=== PATIENT | female | born 1945 | race Caucasian/White ===

== ENCOUNTER 2021-10-01 01:30 | Inpatient (IN) ==
[2021-10-01] MEDS ORDERED: methylPREDNISolone SOD SUC 125 MG/2 ML VIAL IV STA (08:02)
[2021-10-01] MEDS ORDERED: ALBUTEROL/IPRATROPIUM 3 ML NEB RESP TX STA (08:02)
[2021-10-01 08:59] LABS: Basophils % 0.3 % (0.0-0.8); Eosinophils # 0.1 10*3/uL (0.0-0.87); Hematocrit 37.5 VOL% (35.7-47.0); Hemoglobin 12.5 GM/DL (12.0-16.0); Immature Granulocytes % 0.6 %; Immature Granulocytes Absolute 0.04 #; Lymphocytes # 1.7 10*3/uL (1.4-4.0); Lymphocytes % 24.6 % (21.3-54.2); Mean Corpuscular HGB Conc 33.3 GM/DL (32-36); Mean Platelet Volume 10.3 FL (9.6-12.0); Monocytes % 9.3 % (1.7-12.7); Neutrophils % 64.2 % (38.7-73.9); Platelet Count 267 T/CUMM (130-400); Red Blood Count 4.36 MC/CUMM (3.8-5.5); Red Cell Distribution Width 12.7 % (9.3-17.3); White Blood Count 6.7 T/CUMM (4-12)
[2021-10-01 09:21] LABS: Alanine Aminotransferase 62 U/L (13-56); Albumin 3.4 G/DL (3.4-5.0); Alkaline Phosphatase 259 U/L (45-117); Aspartate Amino Transferase 61 U/L (0-37); Bilirubin,Total < 0.39 MG/DL (0.20-1.00); Blood Urea Nitrogen 14 MG/DL (7-18); Calcium 9.1 MG/DL (8.5-10.1); Carbon Dioxide 28 MMOL/L (21-32); Estimated Glom Filtration Rate 73 ML/MIN; Glucose 201 MG/DL (74-106); Osmolality,Calculated 274.2 MOS/KG (273-304); Potassium 4.1 MMOL/L (3.5-5.1); Sodium 134 MMOL/L (136-145); Total Protein 7.3 G/DL (6.4-8.2)
[2021-10-01 09:22] LABS: Band Neutrophils 9 % (0-10); Eosinophils 1 % (0-10); Lymphocytes 21 % (20-55); Platelet Estimate Normal; Segmented Neutrophils 59 % (50-85); Total Cells Counted 100
[2021-10-01 09:23] LABS: Anisocytosis Slight
[2021-10-01] MEDS ORDERED: ALBUTEROL 2.5 MG/3 ML NEB RESP TX STA (10:05)
[2021-10-01] MEDS ORDERED: GLUCAGON 1 MG VIAL IM PRN (14:19)
[2021-10-01] MEDS ORDERED: DEXTROSE 50% 25 GM/50 ML SYRINGE IV PRN (14:19)
[2021-10-01] MEDS ORDERED: ALBUTEROL 2.5 MG/3 ML NEB RESP TX PRN (14:19)
[2021-10-01] MEDS ORDERED: ONDANSETRON 4 MG/2 ML VIAL IV PRN (14:19)
[2021-10-01] MEDS ORDERED: LOSARTAN 25 MG TABLET PO SCH (14:30)
[2021-10-01] MEDS: ENOXAPARIN 40 MG/0.4 ML SYRINGE SUBCUT SCH (15:39)
[2021-10-01] MEDS: METOPROLOL TARTRATE 50 MG TABLET PO SCH ×2 (15:39→21:25)
[2021-10-01] MEDS: SODIUM CHLORIDE 0.9% 1,000 ML IV SCH ×2 (15:39→21:30)
[2021-10-01] MEDS: ASPIRIN EC 81 MG TABLET PO SCH (15:39)
[2021-10-01] MEDS: cefTRIAXone 1,000 MG in SODIUM CHLORIDE 0.9% 100 ML IV SCH (15:40)
[2021-10-01] MEDS: INSULIN REGULAR 100 UNIT/ML SUBCUT SCH ×2 (17:32→21:24)
[2021-10-01] MEDS: methylPREDNISolone SOD SUC 40 MG/1 ML VIAL IV SCH (17:38)
[2021-10-01] MEDS: INSULIN LISPRO 100 UNIT/ML SUBCUT SCH (17:39)
[2021-10-01 18:25] LABS: Thyroid Stimulating Hormone 4.83 uIU/ml (0.358-3.74)
[2021-10-01] MEDS: BUDESONIDE 0.5 MG/2 ML NEB RESP TX SCH (20:29)
[2021-10-01] MEDS: ALBUTEROL/IPRATROPIUM 3 ML NEB RESP TX SCH (20:29)
[2021-10-01] MEDS: ATORVASTATIN 20 MG TABLET PO SCH (21:24)
[2021-10-02] MEDS: methylPREDNISolone SOD SUC 40 MG/1 ML VIAL IV SCH ×3 (00:28→17:02)
[2021-10-02] MEDS: ALBUTEROL/IPRATROPIUM 3 ML NEB RESP TX SCH ×4 (01:21→20:10)
[2021-10-02] MEDS: SODIUM CHLORIDE 0.9% 1,000 ML IV SCH ×2 (06:35→14:53)
[2021-10-02] MEDS: BUDESONIDE 0.5 MG/2 ML NEB RESP TX SCH ×2 (07:25→20:10)
[2021-10-02] MEDS ORDERED: MAGNESIUM SULF RIDER 4 GM/100 ML PREMIX IV PRN (07:58)
[2021-10-02] MEDS ORDERED: POTASSIUM CHLORIDE 20 MEQ TABLET PO PRN (07:58)
[2021-10-02] MEDS ORDERED: MAGNESIUM SULF RIDER 2 GM/50 ML PREMIX IV PRN (07:58)
[2021-10-02] MEDS: PANTOPRAZOLE 40 MG TABLET PO SCH (09:03)
[2021-10-02] MEDS: INSULIN REGULAR 100 UNIT/ML SUBCUT SCH ×4 (09:03→22:08)
[2021-10-02] MEDS: INSULIN LISPRO 100 UNIT/ML SUBCUT SCH ×3 (09:03→17:03)
[2021-10-02] MEDS: METOPROLOL TARTRATE 50 MG TABLET PO SCH ×2 (09:03→22:08)
[2021-10-02] MEDS: ASPIRIN EC 81 MG TABLET PO SCH (09:03)
[2021-10-02] MEDS: INSULIN GLARGINE 100 UNIT/ML SUBCUT SCH (09:03)
[2021-10-02 09:44] LABS: Basophils % 0.1 % (0.0-0.8); Hematocrit 34.3 VOL% (35.7-47.0); Hemoglobin 11.3 GM/DL (12.0-16.0); Immature Granulocytes % 0.9 %; Immature Granulocytes Absolute 0.16 #; Lymphocytes # 1.6 10*3/uL (1.4-4.0); Lymphocytes % 8.3 % (21.3-54.2); Mean Corpuscular HGB Conc 32.9 GM/DL (32-36); Mean Corpuscular Volume 87.9 FL (87-102); Mean Platelet Volume 10.5 FL (9.6-12.0); Monocytes % 3.5 % (1.7-12.7); Neutrophils % 87.2 % (38.7-73.9); Platelet Count 291 T/CUMM (130-400); Red Cell Distribution Width 13.1 % (9.3-17.3); White Blood Count 18.8 T/CUMM (4-12)
[2021-10-02 10:14] LABS: Albumin 2.6 G/DL (3.4-5.0); Bilirubin,Total 0.7 MG/DL (0.20-1.00); Calcium 8.1 MG/DL (8.5-10.1); Potassium 4.1 MMOL/L (3.5-5.1); Total Protein 6.7 G/DL (6.4-8.2)
[2021-10-02] MEDS: cefTRIAXone 1,000 MG in SODIUM CHLORIDE 0.9% 100 ML IV SCH (14:49)
[2021-10-02] MEDS: AZITHROMYCIN 250 MG TABLET PO SCH (14:50)
[2021-10-02] MEDS: ENOXAPARIN 40 MG/0.4 ML SYRINGE SUBCUT SCH (14:50)
[2021-10-02] MEDS: ATORVASTATIN 20 MG TABLET PO SCH (22:08)
[2021-10-03] MEDS: ALBUTEROL/IPRATROPIUM 3 ML NEB RESP TX SCH ×4 (00:25→19:45)
[2021-10-03] MEDS: methylPREDNISolone SOD SUC 40 MG/1 ML VIAL IV SCH ×2 (01:37→08:39)
[2021-10-03 02:16] LABS: Bilirubin,Urine Negative (Negative); Blood, Urine Negative (Negative); Glucose,Urine (UA) >=500 mg/dL (Negative); Hyaline Casts,Urine 4 /LPF (0-3); Ketones,Urine Negative (Negative); Mucus,Urine Occasional /LPF (Occasional); Nitrite,Urine Negative (Negative); Protein,Urine Negative; RBC,Urine 2 /HPF (0-4); Squamous Epithelial Cell,Urine Occasional /HPF (0-10); Urine Appearance CLEAR (Clear); Urine Color Yellow (Yellow); Urine Specific Gravity 1.018 (1.001-1.035); Urine Urobilinogen < 2.0 EU/DL (<2.0)
[2021-10-03] MEDS: SODIUM CHLORIDE 0.9% 1,000 ML IV SCH ×3 (04:17→19:20)
[2021-10-03 05:24] LABS: Basophils % 0.1 % (0.0-0.8); Hematocrit 33.4 VOL% (35.7-47.0); Immature Granulocytes % 1.5 %; Immature Granulocytes Absolute 0.34 #; Lymphocytes # 1.6 10*3/uL (1.4-4.0); Lymphocytes % 6.9 % (21.3-54.2); Mean Corpuscular HGB Conc 32.9 GM/DL (32-36); Mean Corpuscular Volume 88.1 FL (87-102); Mean Platelet Volume 10.6 FL (9.6-12.0); Monocytes % 3.9 % (1.7-12.7); Neutrophils % 87.6 % (38.7-73.9); Platelet Count 327 T/CUMM (130-400); Red Blood Count 3.79 MC/CUMM (3.8-5.5); Red Cell Distribution Width 13.2 % (9.3-17.3); White Blood Count 22.8 T/CUMM (4-12)
[2021-10-03 05:48] LABS: Alanine Aminotransferase 40 U/L (13-56); Albumin 2.5 G/DL (3.4-5.0); Alkaline Phosphatase 161 U/L (45-117); Aspartate Amino Transferase 40 U/L (0-37); Bilirubin,Total < 0.39 MG/DL (0.20-1.00); Blood Urea Nitrogen 22 MG/DL (7-18); Calcium 8.3 MG/DL (8.5-10.1); Carbon Dioxide 19 MMOL/L (21-32); Estimated Glom Filtration Rate 48 ML/MIN; Glucose 194 MG/DL (74-106); Osmolality,Calculated 286.4 MOS/KG (273-304); Potassium 3.5 MMOL/L (3.5-5.1); Sodium 140 MMOL/L (136-145); Total Protein 6.4 G/DL (6.4-8.2)
[2021-10-03] MEDS: LEVOTHYROXINE 75 MCG TABLET PO SCH (06:07)
[2021-10-03] MEDS: BUDESONIDE 0.5 MG/2 ML NEB RESP TX SCH ×2 (07:16→19:45)
[2021-10-03 07:48] LABS: Lymphocytes 4 % (20-55); Metamyelocytes 2 %; Segmented Neutrophils 91 % (50-85); Total Cells Counted 100
[2021-10-03 07:49] LABS: Ovalocytes Few; Platelet Estimate Normal
[2021-10-03] MEDS: INSULIN LISPRO 100 UNIT/ML SUBCUT SCH ×3 (08:39→17:26)
[2021-10-03] MEDS: INSULIN GLARGINE 100 UNIT/ML SUBCUT SCH (08:39)
[2021-10-03] MEDS: INSULIN REGULAR 100 UNIT/ML SUBCUT SCH ×4 (08:39→20:59)
[2021-10-03] MEDS: ASPIRIN EC 81 MG TABLET PO SCH (08:40)
[2021-10-03] MEDS: PANTOPRAZOLE 40 MG TABLET PO SCH (08:40)
[2021-10-03] MEDS: AZITHROMYCIN 250 MG TABLET PO SCH (08:40)
[2021-10-03] MEDS: METOPROLOL TARTRATE 50 MG TABLET PO SCH ×2 (08:40→20:58)
[2021-10-03] MEDS: ENOXAPARIN 40 MG/0.4 ML SYRINGE SUBCUT SCH (16:49)
[2021-10-03] MEDS: cefTRIAXone 1,000 MG in SODIUM CHLORIDE 0.9% 100 ML IV SCH (16:49)
[2021-10-03] MEDS: predniSONE 10 MG TABLET PO SCH (20:58)
[2021-10-03] MEDS: ATORVASTATIN 20 MG TABLET PO SCH (20:58)
[2021-10-04] MEDS: ALBUTEROL/IPRATROPIUM 3 ML NEB RESP TX SCH ×2 (00:58→07:25)
[2021-10-04] MEDS: SODIUM CHLORIDE 0.9% 1,000 ML IV SCH ×2 (03:27→09:25)
[2021-10-04 06:07] LABS: Basophils % 0.2 % (0.0-0.8); Hematocrit 31.8 VOL% (35.7-47.0); Hemoglobin 10.5 GM/DL (12.0-16.0); Immature Granulocytes % 3.3 %; Lymphocytes # 1.3 10*3/uL (1.4-4.0); Lymphocytes % 6.8 % (21.3-54.2); Mean Corpuscular Volume 86.6 FL (87-102); Mean Platelet Volume 10.5 FL (9.6-12.0); Monocytes % 5.1 % (1.7-12.7); Neutrophils % 84.6 % (38.7-73.9); Platelet Count 298 T/CUMM (130-400); Red Blood Count 3.67 MC/CUMM (3.8-5.5); Red Cell Distribution Width 13.4 % (9.3-17.3); White Blood Count 18.3 T/CUMM (4-12)
[2021-10-04] MEDS: LEVOTHYROXINE 75 MCG TABLET PO SCH (06:12)
[2021-10-04 06:22] LABS: Alanine Aminotransferase 42 U/L (13-56); Albumin 2.2 G/DL (3.4-5.0); Alkaline Phosphatase 142 U/L (45-117); Aspartate Amino Transferase 39 U/L (0-37); Bilirubin,Total < 0.39 MG/DL (0.20-1.00); Blood Urea Nitrogen 16 MG/DL (7-18); Carbon Dioxide 21 MMOL/L (21-32); Estimated Glom Filtration Rate 73 ML/MIN; Glucose 100 MG/DL (74-106); Osmolality,Calculated 286.8 MOS/KG (273-304); Potassium 3.6 MMOL/L (3.5-5.1); Sodium 144 MMOL/L (136-145); Total Protein 5.9 G/DL (6.4-8.2)
[2021-10-04 06:29] LABS: Band Neutrophils 2 % (0-10); Lymphocytes 7 % (20-55); Platelet Estimate Adequate; Segmented Neutrophils 88 % (50-85); Total Cells Counted 100
[2021-10-04 06:30] LABS: Hypochromia 1+; Microcytosis 1+
[2021-10-04] MEDS: BUDESONIDE 0.5 MG/2 ML NEB RESP TX SCH (07:25)
[2021-10-04] MEDS: INSULIN REGULAR 100 UNIT/ML SUBCUT SCH ×2 (07:32→12:01)
[2021-10-04] MEDS: PANTOPRAZOLE 40 MG TABLET PO SCH (09:25)
[2021-10-04] MEDS: AZITHROMYCIN 250 MG TABLET PO SCH (09:25)
[2021-10-04] MEDS: METOPROLOL TARTRATE 50 MG TABLET PO SCH (09:25)
[2021-10-04] MEDS: ASPIRIN EC 81 MG TABLET PO SCH (09:25)
[2021-10-04] MEDS: predniSONE 10 MG TABLET PO SCH (09:25)
[2021-10-04] MEDS: INSULIN GLARGINE 100 UNIT/ML SUBCUT SCH (09:25)
[2021-10-04] MEDS: INSULIN LISPRO 100 UNIT/ML SUBCUT SCH ×2 (09:25→12:01)
[2021-10-04 11:23] VITALS: BP 153/90
[2021-10-04] MEDS ORDERED: DOXYCYCLINE HYCLATE 100 MG CAPSULE PO SCH (17:00)
== END 2021-10-04 13:45 | disposition home or self-care (01) | DRG 191 ==
LOC: N.ED 01:30 → N.EDINP 14:17 → SUATTDRO 14:17 → N.3E 15:50
PROVIDERS: ADMIT Internal Medicine; ATTEND Internal Medicine